=== PATIENT | male | born 1990 | race Caucasian/White ===

== ENCOUNTER 2023-11-10 13:36 | Emergency (ER) | payer BC, SELFPAY ==
[2023-11-10 13:38] VITALS: BP 152/106
[2023-11-10 14:19] VITALS: BP 147/88
[2023-11-10 15:19] LABS: % Basophils 0.2 % (0-2); % Eosinophils 2.3 % (0-6); % Immature Granulocytes 0.4 % (0-0.5); % Lymphocytes 8.2 % (20.5-51.1); % Neutrophils 81.9 % (42.2-75.2); Absolute Eosinophils 0.4 10^3/uL (0-0.7); Absolute Immature Granulocytes 0.1 10^3/uL (0-0.05); Absolute Lymphocytes 1.4 10^3/uL (1.2-3.4); Absolute Monocytes 1.2 10^3/uL (0.1-0.6); Absolute Neutrophils 14.3 10^3/uL (1.4-6.5); Hematocrit 45.7 % (39.0-52.0); Hemoglobin 15.6 g/dL (13.0-18.0); Mean Corp Hgb Conc. 34.1 g/dL (33.0-37.0); Mean Corpuscular Hgb 29.2 pg (27.0-31.0); Mean Corpuscular Volume 85.4 fL (80.0-94.0); Mean Platelet Volume 10.1 fL (7.4-10.4); Nucleated Red Blood Cells % 0 % (-); Platelet Count 363 10^3/uL (130-400); Red Blood Cell Count 5.35 10^6/uL (4.70-6.10); Red Cell Dist. Width 13.7 % (11.5-14.5); White Blood Cell Count 17.5 10^3/uL (4.8-10.8)
--- NOTE | 2023-11-10 15:21 | ED.GENMED ---
History of Present Illness
General
Chief Complaint: Blood Pressure Problem
Source: patient and spouse
Time Seen by Provider: 11/10/23 14:03
Travel History
Have you had any contact with someone who has COVID-19?: No
Do you have any symptoms of coronavirus? Fever > 100 degrees, chills, cough, shortness of breath, sore throat, loss of taste or smell, muscle aches, or headache?: No
History of Present Illness
History of Present Illness:
32-year-old male with history of hypertension presents after he was noted to have uncontrolled hypertension at home. Patient also reports he did not feel well today. He went to work and just was not feeling quite himself and felt little bit like
he was in a fog. He decided to go home. Patient works as an HVAC contractor. At home he realized his blood pressure was 160/100. He then began to feel nauseous. Earlier had little bit of chest discomfort as well. He states symptoms now feels
much better but he vomited twice. No headache or vision changes. He states when his blood pressure goes really high it makes him feel abnormal. Currently is on 2 different medications for his blood pressure. Denies current chest pain. No
shortness of breath. He also is on tirzepatide for weight loss
Past History
Past History
ED Past Medical History: HTN and Psychiatric (Patient takes trazodone)
ED Past Surgical History: Orthopedic (Knee surgery, carpal tunnel surgery)
Social History
Tobacco: Non-smoker
Alcohol: None
Personal:
Living: with family
Employment: Employed ([employer])
Family History
Family History: Other (sister with crohns.)
Phy Exam
Physical Exam
Physical Exam:
CONSTITUTIONAL Patient alert and oriented to person, place and time. Well-appearing. Vital signs reviewed. Obese. Blood pressure 147/88
HEAD atraumatic, normocephalic.
EYES eyelids normal to inspection, Pupils equally round and reactive to light, Extraocular muscles intact, Conjunctiva normal, Sclera normal.
NECK normal range of motion, Trachea midline, no jugular venous distention.
RESPIRATORY CHEST No respiratory distress noted, Chest expansion equal, Bilateral breath sounds clear.
CARDIOVASCULAR regular rate and rhythm, Heart sounds normal.
ABDOMEN abdomen nontender, Bowel sounds normal. No distention.
BACK normal inspection, no obvious deformities
UPPER EXTREMITY range of motion normal, Motor strength normal, no cyanosis, no edema.
LOWER EXTREMITY range of motion normal, Motor strength normal, no cyanosis, no edema.
NEURO Speech normal, No focal motor deficits, [place] coma scale 15, Memory normal, Cranial Nerves intact to screening exam.
SKIN skin warm, dry, and normal in color.
PSYCHIATRIC patient oriented to person place and time, Normal affect.
Course
Orders/Labs/Results
Orders:
Orders
11/10/23 13:41
Electrocardiogram (*1) Urgent
Reason for Study: Hypertension, Benign
11/10/23 13:42
EKG- Treatment ONCE
11/10/23 15:04
Complete Blood Count/With Diff Urgent
Comprehensive Metabolic Panel Urgent
Troponin I Urgent
Abnormal Lab Results
11/10/23
15:04
WBC 17.5 H 10^3/uL
(4.8-10.8)
Abs Immat Gran (auto) 0.1 H 10^3/uL
(0-0.05)
Absolute Neuts (auto) 14.3 H 10^3/uL
(1.4-6.5)
Absolute Monos (auto) 1.2 H 10^3/uL
(0.1-0.6)
Neutrophils % 81.9 H %
(42.2-75.2)
Lymphocytes % 8.2 L %
(20.5-51.1)
Glucose 101 H mg/dl
(70-99)
11/10/23 15:04
11/10/23 15:04
Vital Signs
Initial and Last Documented VS:
Initial Vital Signs
Temp Pulse Resp BP Pulse Ox
98.4 F 89 16 152/106 96
11/10/23 13:38 11/10/23 13:38 11/10/23 13:38 11/10/23 13:38 11/10/23 13:38
Last Documented Vital Signs
Temp Pulse Resp BP Pulse Ox
98.4 F 83 18 129/78 95
11/10/23 13:38 11/10/23 15:38 11/10/23 15:38 11/10/23 17:00 11/10/23 17:00
MDM/Problems Addressed
MDM/Problems Addressed:
Vomiting, chest pain, uncontrolled hypertension
*Pulse Oximetry
Patient hypoxic: no
*EKG
Interpreted by ED Provider?: Yes
Interpretation: normal
Rate: normal
Gore: normal axis
QRS Pattern: normal QRS
Ischemia: no ischemia
*Sports Athletic Trainer Interpretation
Rate: normal
Interpretation: normal
Rhythm: sinus
*Critical Care Note
Total Time (30-74mins, 75-104mins- exclusive of procedures): Not Applicable
Data Reviewed
Prescriptions/Medications Considered But Not Given:
Consider labetalol but blood pressure improved without intervention
Patient Management
Escalation/DeEscalation of care consider admission/obs:
Patient reassessed and blood pressure much improved without intervention. Question vomiting related to illness versus tirzepatide. The patient has not changed his dose of tirzepatide. He does appear well. White count noted but suspect
marginalization from vomiting. Okay for discharge outpatient follow-up
ED Attending Note
-
Portions of this chart may have been created with voice recognition software.� Occasional wrong word or��sound alike� substitutions may have occurred due to the inherent limitations of voice recognition software.
Discharge Plan
Departure
Patient Disposition: Home (Routine Discharge)
Date of Disposition: 11/10/23
Time of Disposition: 17:02
Patient with high blood pressure during this ER visit?: No
Discharge Problem:
Vomiting
Instructions: High Blood Pressure (DC), Acute Nausea and Vomiting
Prescriptions:
No Action
IBUPROFEN
1 tab PO PRN PRN (Reason: pain)
azithromycin [Zithromax] 250 MG tablet
250 mg PO UD Qty: 1 0RF
hydrocodone-acetaminophen 1 TABLET tablet
1 tab PO Q4HPRN PRN (Reason: pain) Qty: 15 0RF
cephalexin 500 MG capsule
500 mg PO TID Qty: 30 0RF
cephalexin 500 MG capsule
500 mg PO BID Qty: 20 0RF
naproxen 375 MG tablet
375 mg PO BID Qty: 14 0RF
Rx Instructions:
Take with food.
Referrals:
Ap Godinez PA-C [Family Provider] -
Activity Restrictions/Additional Instructions:
Please see your doctor in the next 3 to 5 days for follow-up and reevaluation. Return immediately for chest pain, shortness of breath, weakness of any kind or any other concerns.
Interventions
Interventions:
*Risk Screen - Suicide Last Done: 11/10/23 14:17
*General Assessment Last Done: 11/10/23 14:17
*Neglect/Abuse Screening Last Done: 11/10/23 14:17
*ED COVID-19 Vaccine History Last Done: 11/10/23 13:38
ED- Cardiac Assessment Last Done: 11/10/23 14:17
ED- Neurological Assessment Last Done: 11/10/23 14:17
ED- Pulmonary Assessment Last Done: 11/10/23 14:17
Discharge Date and Time
Print Language: ARABIC
[2023-11-10 15:30] LABS: ALT (SGPT) 42 U/L (0-50); AST (SGOT) 33 U/L (17-59); Albumin 4.6 g/dl (3.5-5.0); Alkaline Phosphatase 78 U/L (38-126); Blood Urea Nitrogen 19 mg/dl (9-20); Calcium 9.9 mg/dl (8.4-10.2); Carbon Dioxide 22 mmol/L (22-30); Chloride 107 mmol/L (98-107); Glucose 101 mg/dl (70-99); Potassium 4.7 mmol/L (3.5-5.1); Sodium 141 mmol/L (135-145); Total Bilirubin 0.6 mg/dl (0.2-1.3); Total Protein 7.9 g/dl (6.3-8.2); eGFR > 60.00
[2023-11-10 15:38] VITALS: BP 144/97
[2023-11-10 15:40] LABS: Troponin I < 0.012 ng/ml
[2023-11-10 17:00] VITALS: BP 129/78
== END 2023-11-10 17:57 | disposition home or self-care (01) ==
LOC: EMR 13:36
PROVIDERS: EMERGENCY PHYSICIAN Emergency Medicine; FAMILY PHYSICIAN Physician Assistant
DX: R11.2 Nausea with vomiting, unspecified (principal); I10 Essential (primary) hypertension; Z83.79 Family history of other diseases of the digestive system
CPT/HCPCS: 99283; 80053; 84484; 85025; 93005